=== PATIENT | female | born 1930 | race Caucasian/White ===

== ENCOUNTER 2019-08-06 10:59 | Inpatient (IN) | payer MEDICARE, BC ==
[~2019-08-06] VITALS: Ht 170.2 cm; Wt 68.6 kg
--- NOTE | 2019-08-06 11:10 | PHYS DOC ---
Past History Past Medical History: Anxiety, Dementia, Depression, Hypertension, Hypothyroid, Other Additional Past Medical Histor: heart of hearing, glaucoma, osteoporosis Smoking: Non-smoker Alcohol Use: None Drug Use: None Adult General Chief Complaint Chief Complaint: MEDICAL CLEARANCE [facility] HPI Patient is an 89-year-old female presents from the assisted care facility where she resides due to change in behavior. Patient has been hitting herself in the head to the point it's reddened. She has been yelling out, throwing things, agitated. She has been hitting her head on the handrail next to the commode. The facility where she is residing has tried redirection, and BuSpar. History is prabhakar ited from the patient due to her dementia.[] Review of Systems Review of Systems Constitutional: Denies fever or chills [] Eyes: Denies change in visual acuity, redness, or eye pain [] HENT: Denies nasal congestion or sore throat [] Respiratory: Denies cough or shortness of breath [] Cardiovascular: No additional information not addressed in HPI [] GI: Denies abdominal pain, nausea, vomiting, bloody stools or diarrhea [] : Denies dysuria or hematuria [] Musculoskeletal: Denies back pain or joint pain [] Integument: Denies rash or skin lesions [] Neurologic: Denies headache, focal weakness or sensory changes [] Endocrine: Denies polyuria or polydipsia [] All other systems were reviewed and found to be within normal limits, except as documented in this note. Physical Exam Physical Exam Constitutional: Well developed, well nourished, no acute distress, non-toxic appearance. [] HENT: Normocephalic, atraumatic, bilateral external ears normal, oropharynx moist, no oral exudates, nose normal. [] Eyes: PERRLA, EOMI, conjunctiva normal, no discharge. [] Neck: Normal range of motion, no tenderness, supple, no stridor. [] Cardiovascular:Heart rate regular rhythm, no murmur [] Lungs & Thorax: Bilateral breath sounds clear to auscultation [] Abdomen: Bowel sounds normal, soft, no tenderness, no masses, no pulsatile masses. [] Skin: Warm, dry, no erythema, no rash. [] Back: No tenderness, no CVA tenderness. [] Extremities: Left hip tenderness when nursing staff was taking down her pants in preparation to getting a urine sample. Pelvis is stable and 3 planes. She is able to move her hip. The other 3 extremities show: No tenderness, no cyanosis, no clubbing, ROM intact, no edema. [] Neurologic: Alert and oriented X 2, normal motor function, normal sensory function, no focal deficits noted. [] Psychologic: Affect agitated, mood normal. [] EKG EKG EKG shows a sinus rhythm at 83 bpm, normal axis, QTC of 438 ms, no ST elevation. No old EKG available for comparison. Interpreted by me at 1140.[] Radiology/Procedures Radiology/Procedures PROCEDURE: PORTABLE CHEST 1V PORTABLE CHEST 1V History: Change in mental status. Comparison: None. Findings: Basilar interstitial prominence. No focal consolidation or pleural effusion. Normal heart size. No pneumothorax. Impression: 1. Basilar interstitial prominence, likely related to chronic interstitial changes. Comparison with prior imaging studies would be of benefit. PROCEDURE: CT HEAD AND CERVICAL SPINE WO CT HEAD AND CERVICAL SPINE WO History: Bruising left forehead. Change in behavior. Comparison: None. Technique: Noncontrast CT imaging was performed of the head and cervical spine. Coronal and sagittal reconstructions were performed. Exposure: One or more of the following individualized dose reduction techniques were utilized for this examination: 1. Automated exposure control 2. Adjustment of the mA and/or kV according to patient size 3. Use of iterative reconstruction technique. Findings: Head CT: No intracranial hemorrhage. No mass effect. Moderate brain parenchymal volume loss. Moderate foci of decreased attenuation within the hemispheric white matter, most often due to chronic microvascular ischemia. Mildly prominent lateral ventricles, likely related to central brain parenchymal volume loss. Imaged orbits are unremarkable. Imaged paranasal sinuses and mastoid air cells are clear. No acute calvarial fracture. Left TMJ arthropathy. Cervical spine CT: Motion degraded examination. Repeat attempt at imaging was made with subsequent motion degradation. Grade 1 anterolisthesis C3 on C4 and C4 on C5. Minimal retrolisthesis C5 on C6. Grade 1 anterolisthesis C6 on C7, C7 on T1 in T1 on T2. Normal vertebral body height. No fracture. Moderate multilevel degenerative disc disease most prominent C5-C6. Multilevel advanced facet arthropathy most prominent left C2-C3, C3-C4 and C4-C5. No high-grade canal or neuroforaminal narrowing. C1-C2 degenerative changes with posterior pannus formation contributing to narrowing of the cervical medullary junction. Biapical pleural scarring. Multifocal carious dentition and periodontal disease most prominent within the left mandibular molars. Impression: Head CT: 1. No acute intracranial abnormality. 2. Moderate brain parenchymal volume loss and sequela chronic microvascular ischemia. CT cervical spine: Motion degraded examination. 1. No acute fracture or subluxation of the cervical spine 2. Multilevel cervical spondylosis with multilevel anterolisthesis. 3. Multifocal carious dentition and periodontal disease. PROCEDURE: PELVIS EXAM: Pelvis, single view. HISTORY: Pain. COMPARISON: None. FINDINGS: A frontal view of the pelvis is obtained. There is severe hip joint space narrowing with degenerative subchondral sclerosis, subchondral cyst formation, marginal osteophytosis and slight bony remodeling. There is advanced degenerative change at the lumbosacral junction. There is suspected bone demineralization. No displaced fracture is seen. IMPRESSION: 1. Severe bilateral hip osteoarthritis. 2. Degenerative change at the lumbosacral junction. [] Course & Med Decision Making Course & Med Decision Making Pertinent Labs and Imaging studies reviewed. (See chart for details) Urgency department course and medical decision making: Patient arrived, was placed in bed, and tolerated exam well. A straight catheter was placed to obtain urine. After return lab and imaging results, patient was given initial dose of antibiotics for the urinary tract infection. There is no evidence of systemic toxicity nor intracranial mass or bleed, nor significant electrolyte abnormality. Believe the patient is appropriate for senior behavioral health.[] Dragon Disclaimer Dragon Disclaimer This electronic medical record was generated, in whole or in part, using a voice recognition dictation system. Departure Departure: Impression: Primary Impression: Medical clearance for psychiatric admission Additional Impression: Urinary tract infection Disposition: 09 ADMITTED INPATIENT Admitting Physician: Other Condition: IMPROVED Problem Qualifiers Additional Impression: Urinary tract infection Urinary tract infection type: site unspecified Hematuria presence: with hematuria Qualified Codes: N39.0 - Urinary tract infection, site not specified; R31.9 - Hematuria, unspecified VALENCIA ARELLANO DO Aug 06, 2019 11:10
[2019-08-06 11:18] LABS: BASO # 0.1 x10^3/uL (0.0-0.2); BASO % 1 % (0-3); EOS # 0.1 x10^3/uL (0.0-0.7); EOS % 1 % (0-3); HEMATOCRIT 36.9 % (36.0-47.0); HEMOGLOBIN 12.4 g/dL (12.0-15.5); LYMPH # 1.4 x10^3/uL (1.0-4.8); LYMPH % 16 % (24-48); MEAN CORPUSCULAR HEMOGLOBIN 35 pg (25-35); MEAN CORPUSCULAR HGB CONC 34 g/dL (31-37); MEAN CORPUSCULAR VOLUME 103 fL (79-100); MONO % 11 % (0-9); NEUT # 6.5 x10^3uL (1.8-7.7); NEUT % 72 % (31-73); PLATELET COUNT 270 x10^3/uL (140-400); RED BLOOD COUNT 3.58 x10^6/uL (3.50-5.40); RED CELL DISTRIBUTION WIDTH 13.6 % (11.5-14.5)
--- NOTE | 2019-08-06 11:41 | EKG ---
[address] [address] Test Date: 2019-08-06 Test Time: 11:36:02 Pat Name: SHERLEY SIMON Department: Room: Gender: F Housekeeping Room Attendant: ENRICO : 1930 Requested By: VALENCIA ARELLANO Order Number: [id number] Reading MD: Carlos James MD Measurements Intervals [place] Rate: 83 P: 90 AR: 160 QRS: 32 QRSD: 94 T: 76 QT: 372 QTc: 438 Interpretive Statements SINUS RHYTHM NON-SPECIFIC ST/T CHANGES Electronically Signed On 08-17-2019 9:35:18 CDT by Carlos James MD
--- NOTE | 2019-08-06 12:01 | RAD ---
EXAM: Pelvis, single view. HISTORY: Pain. COMPARISON: None. FINDINGS: A frontal view of the pelvis is obtained. There is severe hip joint space narrowing with degenerative subchondral sclerosis, subchondral cyst formation, marginal osteophytosis and slight bony remodeling. There is advanced degenerative change at the lumbosacral junction. There is suspected bone demineralization. No displaced fracture is seen. IMPRESSION: 1. Severe bilateral hip osteoarthritis. 2. Degenerative change at the lumbosacral junction. Electronically signed by: Yolanda Manuel MD (08/06/2019 11:58 AM) [facility]
--- NOTE | 2019-08-06 12:37 | RAD ---
CT HEAD AND CERVICAL SPINE WO History: Bruising left forehead. Change in behavior. Comparison: None. Technique: Noncontrast CT imaging was performed of the head and cervical spine. Coronal and sagittal reconstructions were performed. Exposure: One or more of the following individualized dose reduction techniques were utilized for this examination: 1. Automated exposure control 2. Adjustment of the mA and/or kV according to patient size 3. Use of iterative reconstruction technique. Findings: Head CT: No intracranial hemorrhage. No mass effect. Moderate brain parenchymal volume loss. Moderate foci of decreased attenuation within the hemispheric white matter, most often due to chronic microvascular ischemia. Mildly prominent lateral ventricles, likely related to central brain parenchymal volume loss. Imaged orbits are unremarkable. Imaged paranasal sinuses and mastoid air cells are clear. No acute calvarial fracture. Left TMJ arthropathy. Cervical spine CT: Motion degraded examination. Repeat attempt at imaging was made with subsequent motion degradation. Grade 1 anterolisthesis C3 on C4 and C4 on C5. Minimal retrolisthesis C5 on C6. Grade 1 anterolisthesis C6 on C7, C7 on T1 in T1 on T2. Normal vertebral body height. No fracture. Moderate multilevel degenerative disc disease most prominent C5-C6. Multilevel advanced facet arthropathy most prominent left C2-C3, C3-C4 and C4-C5. No high-grade canal or neuroforaminal narrowing. C1-C2 degenerative changes with posterior pannus formation contributing to narrowing of the cervical medullary junction. Biapical pleural scarring. Multifocal carious dentition and periodontal disease most prominent within the left mandibular molars. Impression: Head CT: 1. No acute intracranial abnormality. 2. Moderate brain parenchymal volume loss and sequela chronic microvascular ischemia. CT cervical spine: Motion degraded examination. 1. No acute fracture or subluxation of the cervical spine 2. Multilevel cervical spondylosis with multilevel anterolisthesis. 3. Multifocal carious dentition and periodontal disease. Electronically signed by: Phillip Short DO (08/06/2019 12:34 PM) [id number]
--- NOTE | 2019-08-06 12:40 | RAD ---
PORTABLE CHEST 1V History: Change in mental status. Comparison: None. Findings: Basilar interstitial prominence. No focal consolidation or pleural effusion. Normal heart size. No pneumothorax. Impression: 1. Basilar interstitial prominence, likely related to chronic interstitial changes. Comparison with prior imaging studies would be of benefit. Electronically signed by: Phillip Short DO (08/06/2019 12:37 PM) [id number]
[2019-08-06 12:44] LABS: BACTERIA,URINE MANY /HPF (0-FEW); BILIRUBIN,URINE NEG (NEG); CLARITY,URINE TURBID; COLOR,URINE AMBER; GLUCOSE,URINE NEG (NEG); NITRITE,URINE NEG (NEG); SQUAMOUS EPITHELIAL CELL,UR OCC /LPF; UROBILINOGEN,URINE 0.2 mg/dL (0.2 mg/dL); WBC,URINE >40 /HPF (0-4)
[2019-08-06] MEDS ORDERED: CEPHALEXIN 250 MG CAPSULE ONE (13:08)
[2019-08-06] MEDS ORDERED: CEPHALEXIN 250 MG CAPSULE PO ONE (13:15)
[2019-08-06 13:47] LABS: ALBUMIN 4.1 g/dL (3.4-5.0); CALCIUM 9.6 mg/dL (8.5-10.1); TOTAL PROTEIN 8.4 g/dL (6.4-8.2)
[2019-08-06 13:48] LABS: CREATININE 0.9 mg/dL (0.6-1.0); GFR 59.1; TOTAL BILIRUBIN 0.8 mg/dL (0.2-1.0)
[2019-08-06 13:49] LABS: POTASSIUM 3.7 mmol/L (3.5-5.1)
[2019-08-06 13:50] LABS: MAGNESIUM 2.2 mg/dL (1.8-2.4)
[2019-08-06] MEDS ORDERED: FLU VAX QS 2019-20 (36MOS+)/PF 0.5 ML SYRINGE. VAX IM ONE (14:30)
[2019-08-06] MEDS ORDERED: LATA2.5D3 OP (14:53)
[2019-08-06] MEDS ORDERED: LEVO88TA4 PO (14:53)
[2019-08-06] MEDS ORDERED: POTA10TA5 PO (14:53)
[2019-08-06 15:31] VITALS: BP 138/65
[2019-08-06] MEDS ORDERED: MAGNESIUM HYDROXIDE 2,400 MG/30 ML ORAL.SUSP. PO PRN (16:30)
[2019-08-06] MEDS ORDERED: MAG HYDROX/AL HYDROX/SIMETH 30 ML ORAL.SUSP PO PRN (16:30)
[2019-08-06] MEDS: LATANOPROST 0.005% OPHTH SOLUTION 2.5ML BOTTLE. OU SCH ×2 (20:33→20:47)
--- NOTE | 2019-08-06 21:31 | PDOC ---
Exam Note: Julio César Note: Please also refer to the separate dictated note~for this date of service dictated separately. Discussed the patient with Nursing staff reviewed the chart.~Reviewed interim history and current functioning. Reviewed vital signs,~Labs/ Radiology~and current medications noted below. Continue current treatment with the changes noted in the dictated addendum note Assessment: Vital Signs/I&O: Vital Signs Date Time Temp Pulse Resp B/P (MAP) Pulse Ox O2 Delivery O2 Flow Rate FiO2 08/06/19 15:31 98.8 82 16 138/65 (89) 100 Room Air Labs: Laboratory Tests Test 08/06/19 11:00 08/06/19 11:15 White Blood Count 9.0 x10^3/uL (4.0-11.0) Red Blood Count 3.58 x10^6/uL (3.50-5.40) Hemoglobin 12.4 g/dL (12.0-15.5) Hematocrit 36.9 % (36.0-47.0) Mean Corpuscular Volume 103 fL (79-100) H Mean Corpuscular Hemoglobin 35 pg (25-35) Mean Corpuscular Hemoglobin Concent 34 g/dL (31-37) Red Cell Distribution Width 13.6 % (11.5-14.5) Platelet Count 270 x10^3/uL (140-400) Neutrophils (%) (Auto) 72 % (31-73) Lymphocytes (%) (Auto) 16 % (24-48) L Monocytes (%) (Auto) 11 % (0-9) H Eosinophils (%) (Auto) 1 % (0-3) Basophils (%) (Auto) 1 % (0-3) Neutrophils # (Auto) 6.5 x10^3uL (1.8-7.7) Lymphocytes # (Auto) 1.4 x10^3/uL (1.0-4.8) Monocytes # (Auto) 1.0 x10^3/uL (0.0-1.1) Eosinophils # (Auto) 0.1 x10^3/uL (0.0-0.7) Basophils # (Auto) 0.1 x10^3/uL (0.0-0.2) Sodium Level 135 mmol/L (136-145) L Potassium Level 3.7 mmol/L (3.5-5.1) Chloride Level 101 mmol/L (98-107) Carbon Dioxide Level 21 mmol/L (21-32) Anion Gap 14 (6-14) Blood Urea Nitrogen 13 mg/dL (7-20) Creatinine 0.9 mg/dL (0.6-1.0) Estimated GFR (Cockcroft-Gault) 59.1 BUN/Creatinine Ratio 14 (6-20) Glucose Level 76 mg/dL (70-99) Calcium Level 9.6 mg/dL (8.5-10.1) Magnesium Level 2.2 mg/dL (1.8-2.4) Total Bilirubin 0.8 mg/dL (0.2-1.0) Aspartate Amino Transferase (AST) 48 U/L (15-37) H Alanine Aminotransferase (ALT) 22 U/L (14-59) Alkaline Phosphatase 92 U/L (46-116) Total Protein 8.4 g/dL (6.4-8.2) H Albumin 4.1 g/dL (3.4-5.0) Albumin/Globulin Ratio 1.0 (1.0-1.7) Urine Collection Type U cath Urine Color [place] Urine Clarity Turbid Urine pH 6.5 Urine Specific [place] 1.025 Urine Protein 30 mg/dl (NEG-TRACE) Urine Glucose (UA) Neg mg/dL (NEG) Urine Ketones (Stick) Neg mg/dL (NEG) Urine Blood Mod (NEG) Urine Nitrite Neg (NEG) Urine Bilirubin Neg (NEG) Urine Urobilinogen Dipstick 0.2 mg/dL (0.2 mg/dL) Urine Leukocyte Esterase Large (NEG) Urine RBC 3-5 /HPF (0-2) Urine WBC >40 /HPF (0-4) Urine Squamous Epithelial Cells Occ /LPF Urine Bacteria Many /HPF (0-FEW) Current Medications: Meds: Current Medications Medications (Trade) Dose Ordered Sig/Camila Route PRN Reason Start Time Stop Time Status Last Admin Dose Admin Cephalexin HCl (Keflex) 500 mg 1X ONCE PO 08/06/19 13:15 08/06/19 13:16 DC 08/06/19 13:10 I have reviewed the current psychotropics carefully including drug interactions. Risk benefit ratio favors no change other than as noted in my dictated progress note. Diagnosis: Problems: (1) Anxiety disorder (2) Dementia, vascular, with delusions (3) Dementia, vascular, with depression (4) Dementia in Alzheimer's disease with delusions (5) Dementia in Alzheimer's disease with depression (6) Impulse control disorder ТАТЬЯНА HERNANDEZ MD Aug 06, 2019 21:31
[2019-08-07 02:09] LABS: THYROXINE 7.1 ug/dL (4.5-12.0)
[2019-08-07 03:07] LABS: HEMOGLOBIN A1C 5.2 % (4.8-5.6)
[2019-08-07 05:36] VITALS: BP 107/55
[2019-08-07] MEDS ORDERED: LEVOTHYROXINE 88 MCG TABLET PO SCH (06:00)
[2019-08-07] MEDS: ACETAMINOPHEN 325 MG TABLET PO PRN ×2 (06:30→16:15)
[2019-08-07] MEDS: POTASSIUM CHLORIDE 10 MEQ TABLET.ER. PO SCH (08:23)
[2019-08-07] MEDS ORDERED: FLU VAX QS 2019-20 (36MOS+)/PF 0.5 ML SYRINGE. VAX IM ONE (09:00)
[2019-08-07 10:47] LABS: THYROID STIM HORMONE (TSH) 35.048 uIU/mL (0.358-3.740)
[2019-08-07 15:32] VITALS: BP 138/75
--- NOTE | 2019-08-07 18:02 | HP ---
ADMIT DATE: 08/06/2019 PSYCHIATRIC ADMISSION HISTORY-EVALUATION This late entry 08/06/2019 covers elements not covered in my initial note of 08/06/2019. I met with the patient evening of 08/06/2019, previously discussed with Kylah Tripathi compliance coordinator and reviewed information from the [facility] after the patient was referred to us by Dr. Islas, her primary care physician, on account of increasing confusion, hitting herself in the head to the point it is reddened. She was yelling out, throwing things, sundowning, agitated, having inconsistent sleep, attempted to swing her head to hit it on the side bar of the commode. Patient's behaviors have been dangerous, unmanageable at the facility resulting in this referral. Changes have been made in her psychotropics and she has been on one-on-one status. BuSpar was added. Behavioral interventions with redirections had all failed and psychiatric visits with Dr. Judith Deras have been monthly. CHIEF COMPLAINT: "There is nothing wrong. I need to talk to my daughter. This is a senior living." HISTORY OF PRESENT ILLNESS: The patient reportedly was living in [place] and the daughter would visit her on a regular basis. Reportedly, at the last visit, the patient was generally found to be functioning very poorly in the environment she was living in ____ and the daughter brought her to this area to be closer to the daughter. She has been at the [facility] and consequent to the above behaviors, which have been dangerous, was recently moved to the memory care unit. No clear history of bipolar disorder, suicidal or homicidal ideation other than above. She does have progressive short-term memory deficits. She has also had significant pain issues and in the ER, her UA was positive reflexed to a culture and sensitivity awaited. CT head had shown cortical atrophy, periventricular white matter changes and ventricular dilatation consistent with her dementia diagnosis. PAST PSYCHIATRIC HISTORY: As noted above. ALLERGIES: Negative. CODE STATUS: DNR. MEDICAL HISTORY: UTI, hypertension, hypothyroidism, hard of hearing, glaucoma, osteoporosis. ACCU-CHEKS: None. DIET: Regular, low sodium. Ambulates with walker with assistance; wheelchair, 1 person transfer. CURRENT PSYCHOTROPICS: Potassium supplements and eye drops. FAMILY HISTORY: Noncontributory. SOCIAL HISTORY: No history of alcohol, drug abuse, physical, sexual or elder abuse. She is not known to be a perpetrator. REACTION TO HOSPITALIZATION: The patient oblivious to this. Initially, she was extremely nonverbal, wanting to be left alone, more interactive at my second assessment with her. MENTAL STATUS EXAMINATION: The patient is oriented to herself and situation. Speech is coherent, can be loud and rapid at times. Abstraction fair, computation impaired, language function intact, attention span short. Short term memory is impaired. No active suicidal or homicidal ideation. She does complain of her ____ head hurting consequent to banging her head on one side and she has a bump consequent to this. Workup has been negative for any fractures. IMPRESSION: Major neurocognitive disorder; Alzheimer, vascular with delusion; depression; behavioral disturbance; major depressive disorder, recurrent with psychotic features; anxiety disorder, unspecified; impulse control disorder, unspecified. Rest as above including urinary tract infection. PLAN: Admit to Geropsychiatry Unit at [facility]. I will see the patient daily individually from a psychiatric standpoint. Medical followup per Dr. Ferro. We will consider starting her on Zoloft 25 mg a day. Treat the UTI once we receive the culture back. Make further changes as clinically indicated. Estimated length of stay 10-12 days. DISPOSITION: Plans back to [facility] when stable. MAN Chris HERNANDEZ MD DR: HAIDER/ana maria JOB#: [id number] / [id number]
--- NOTE | 2019-08-07 19:28 | PN ---
DATE: 08/07/2019 PSYCHIATRIC PROGRESS NOTE This note covers elements not covered in my initial note on 08/07/2019 SUBJECTIVE: I met with the patient in the morning. Per HAWA Gallardo, the patient slept 6-1/2 hours previous night. She has been screaming intermittently and when questioned on the reason, she denies screaming whatsoever and states "was I screaming." She has had some pain consequent of hitting her head repeatedly at the half-way and complains of hip hurting. We will defer to Dr. Boyd/Dr. Ferro. She does have a UTI and I will defer to Dr. Boyd for this. REVIEW OF SYSTEMS: Ambulation impaired. No CV, , pulmonary, eye system symptoms on review. MENTAL STATUS EXAM: Oriented to herself, at times situation. Speech has some latency, coherent, can be rapid, loud at times. Abstraction fair, computation impaired, language function intact, attention span short. Mood and affect remains labile. Memory is impaired. LABORATORY DATA: Reviewed. IMPRESSION: Major neurocognitive disorder, Alzheimer, vascular with delusion, depression, behavioral disturbance; anxiety disorder, unspecified; impulse control disorder, unspecified; major depressive disorder, recurrent urinary tract infection. PLAN: Carefully reviewed her medical history, lab workup. CT head mentioned in my prior note. We will start Zoloft [address] Cortes will cover for me over the next 2 days. Reviewed drug interaction potential side effects at length. MAN Chris HERNANDEZ MD DR: HAIDER/ana maria JOB#: [id number] / [id number]
[2019-08-07] MEDS: traMADol 50 MG TABLET PO SCH (19:50)
[2019-08-07] MEDS: LATANOPROST 0.005% OPHTH SOLUTION 2.5ML BOTTLE. OU SCH (19:51)
--- NOTE | 2019-08-07 21:47 | PDOC ---
Exam Note: Julio César Note: Please also refer to the separate dictated note~for this date of service dictated separately.~Patient seen individually. Discussed the patient with Nursing staff reviewed the chart.~Reviewed interim history and current functioning. Reviewed vital signs,~Labs/ Radiology~and current medications noted below. Continue current treatment with the changes noted in the dictated addendum note Assessment: Vital Signs/I&O: Vital Signs Date Time Temp Pulse Resp B/P (MAP) Pulse Ox O2 Delivery O2 Flow Rate FiO2 08/07/19 20:50 100 08/07/19 19:50 16 Room Air 08/07/19 15:32 97.8 86 138/75 (96) I & O 08/06/19 08/06/19 08/07/19 15:00 23:00 07:00 Intake Total 0 ml Balance 0 ml Current Medications: Meds: Current Medications Medications (Trade) Dose Ordered Sig/Camila Route PRN Reason Start Time Stop Time Status Last Admin Dose Admin Levothyroxine Sodium (Synthroid) 88 mcg DAILY06 PO 08/07/19 06:00 08/07/19 11:29 DC 08/07/19 05:34 Potassium Chloride (Klor-Con) 20 meq [id number] PO 08/07/19 08:00 08/07/19 08:23 Influenza Virus Vaccine Quadrival (Afluria Quad 2019-20 (3yr Up) Syringe) 0.5 ml ONCE ONCE VAX IM 08/07/19 09:00 08/07/19 09:01 DC 08/07/19 09:00 Tramadol HCl (Ultram) 50 mg BID PO 08/07/19 21:00 08/07/19 19:50 I have reviewed the current psychotropics carefully including drug interactions. Risk benefit ratio favors no change other than as noted in my dictated progress note. Diagnosis: Problems: (1) Anxiety disorder (2) Dementia, vascular, with delusions (3) Dementia, vascular, with depression (4) Dementia in Alzheimer's disease with delusions (5) Dementia in Alzheimer's disease with depression (6) Impulse control disorder ТАТЬЯНА HERNANDEZ MD Aug 07, 2019 21:47
[2019-08-07] MEDS ORDERED: CEPHALEXIN 250 MG CAPSULE PO ONE (23:45)
--- NOTE | 2019-08-08 00:46 | CONS ---
DATE OF CONSULTATION: 08/06/2019 The patient is on the Senior Behavioral Unit. HISTORY OF PRESENT ILLNESS: This is an 89-year-old female. The patient was admitted for the major neurocognitive disorders as well as a vascular Alzheimer's disease. The patient does have problems with markedly confused and disorganized, looking for her daughter as well as hitting her head into the wall. There is some swelling. A CT scan had been performed and there was no indication of having any problems. The patient otherwise has histories of possible urinary tract infections, hypertension, hypothyroidism, hard of hearing, and glaucoma. The patient is a DNR. ALLERGIES: She has no known allergies. MEDICATIONS: Reviewed and consolidated along with Dr. Sanchez. FAMILY HISTORY: Unremarkable. SOCIAL HISTORY: Denies smoking, alcohol or drug use or elderly abuse and she is not a perpetrator. REVIEW OF SYSTEMS: The patient is really not able to concentrate enough to give us a full statement on her condition. PHYSICAL EXAMINATION: VITAL SIGNS: Blood pressure 135/75, pulse 86, respiratory rate 20, and afebrile. HEENT: The patient's head is atraumatic and normocephalic except for this area of left upper forehead, which showed marked swelling and tenderness ____ maybe 4.5 x 4 cm in diameter where she had been hitting her head on the wall. The patient's head ____ as described above. ____ otherwise, eyes were PERRLA without jaundice. NECK: Supple. LUNGS: Some minimal decreased range of motion because of arthritis. LUNGS: Diminished, but clear. CARDIOVASCULAR SYSTEM: Regular sinus rhythm. ABDOMEN: Soft. EXTREMITIES: No clubbing or cyanosis. No edema. NEUROLOGIC: The patient was alert, but disoriented times at least 3. She did respond to verbal commands; however, she was markedly confused and had a very short term concentration level. IMPRESSION: Therefore, dementia, Alzheimer type; hypertension; hypothyroidism; generalized anxiety; hard of hearing; glaucoma; self-mutilation; osteoporosis; major depressive disorder, recurrent; urinary tract infections; vascular Alzheimer's with delusions, looking for a daughter; and neurocognitive dysfunction. The patient continues to be monitored carefully and ____ urinary tract infection and we will continue on antibiotic therapy for such. ABDI NUNEZ MD DR: KRISTIAN/ana maria JOB#: [id number] / [id number]
[2019-08-08] MEDS: LEVOTHYROXINE 125 MCG TABLET PO SCH (06:03)
[2019-08-08] MEDS: ACETAMINOPHEN 325 MG TABLET PO PRN (06:03)
[2019-08-08 06:31] VITALS: BP 117/60
[2019-08-08] MEDS: POTASSIUM CHLORIDE 10 MEQ TABLET.ER. PO SCH (07:27)
[2019-08-08] MEDS: traMADol 50 MG TABLET PO SCH ×2 (07:28→19:30)
[2019-08-08] MEDS: SERTRALINE 25 MG TABLET. PO SCH (07:33)
[2019-08-08 16:10] VITALS: BP 120/76
[2019-08-08] MEDS: LATANOPROST 0.005% OPHTH SOLUTION 2.5ML BOTTLE. OU SCH (19:32)
--- NOTE | 2019-08-09 02:18 | PN ---
DATE: 08/08/2019 SUBJECTIVE: The patient was seen today, met with the staff, chart reviewed and also covering for Dr. Sanchez. Staff reports that patient is still irritable, howard, angry, explosive temper at times. The patient is also having difficulty with comprehension. The patient also has significant hearing loss. The patient apparently was moved here by her daughter from [place] and the patient is having difficulty giving a coherent history with regard to her past. The patient is emotionally labile, angry and also she was brought here because she was banging her head against the bed rails, which led to a hematoma on her forehead. The patient also apparently was not taking her medications because her TSH was 35 and also she had UTI. OBSERVATION: VITAL SIGNS: Temperature 97.2, blood pressure 117/60, pulse 81, respirations 16, O2 sat 97%. Slept about 8 hours last night. The patient's appetite is fair. The patient's sleep has improved. MEDICATIONS: Reviewed. Currently, she is on Zoloft 25 mg daily, olanzapine 2.5 mg q. 2 hours p.r.n., potassium chloride 20 mEq daily. She is also on levothyroxine 125 mcg daily. The patient was treated for UTI with Keflex. Staff reports no falls. The patient is not having any side effects to the medications. The patient's lab reviewed and no significant change from the previous level. ASSESSMENT: 1. 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 2. Generalized anxiety disorder. PLAN: Continue with the current medications. The patient is currently not exhibiting any side effects. The patient has been staying in bed most of the time and the patient has significant hearing loss. BHARGAVI ROOT MD DR: GALLO/ana maria JOB#: [id number] / [id number]
[2019-08-09] MEDS: levoFLOXacin 250 MG TABLET PO SCH (05:13)
[2019-08-09] MEDS: LEVOTHYROXINE 125 MCG TABLET PO SCH (05:14)
[2019-08-09] MEDS: ACETAMINOPHEN 325 MG TABLET PO PRN ×2 (05:14→20:15)
[2019-08-09 05:26] VITALS: BP 105/63
[2019-08-09] MEDS: METHYL SALICYLATE/MENTHOL TOPICAL OINTMENT 57GM TUBE. TP PRN (06:35)
--- NOTE | 2019-08-09 07:16 | PN ---
DATE: 08/08/2019 SUBJECTIVE: An 89-year-old female who has been having some incontinence. UA came back and was noted to have a urinary tract infection. Presently, final cultures have not been returned yet. She was placed on Levaquin 250 once daily. The patient otherwise is baseline, very agitated. OBJECTIVE: VITAL SIGNS: Blood pressure 120/76, respirations 18, pulse 80, afebrile. LUNGS: Clear. ABDOMEN: Soft. IMPRESSION: Urinary tract infection, gram-negative rods. PLAN: Continue with oral antibiotics for at least a week or unless cultures come back specifying some other type of problem. ABDI NUNEZ MD DR: KRISTIAN/ana maria JOB#: [id number] / [id number]
[2019-08-09] MEDS: POTASSIUM CHLORIDE 10 MEQ TABLET.ER. PO SCH (07:48)
[2019-08-09] MEDS: SERTRALINE 25 MG TABLET. PO SCH (07:49)
[2019-08-09] MEDS: traMADol 50 MG TABLET PO SCH ×2 (07:49→20:16)
[2019-08-09 15:59] VITALS: BP 121/63
[2019-08-09] MEDS: LACTOBACILLUS RHAMNOSUS GG 1 CAPSULE. PO SCH (20:15)
[2019-08-09] MEDS: LATANOPROST 0.005% OPHTH SOLUTION 2.5ML BOTTLE. OU SCH (20:15)
[2019-08-10] MEDS: ACETAMINOPHEN 325 MG TABLET PO PRN (05:13)
[2019-08-10] MEDS: LEVOTHYROXINE 125 MCG TABLET PO SCH (05:14)
[2019-08-10] MEDS: levoFLOXacin 250 MG TABLET PO SCH (05:14)
--- NOTE | 2019-08-10 06:03 | PN ---
DATE: 08/09/2019 SUBJECTIVE: The patient was seen today, met with the staff, chart reviewed and also covering for Dr. Sanchez. Staff reports no major change in behavior. She is still confused, still irritable, howard and has significant hearing loss. The patient has difficulty with her thinking and comprehension and has high level of anxiety and also periods of agitation. The patient was not indulged in any self-destructive behaviors. OBSERVATION: VITAL SIGNS: Temperature 97.6, blood pressure 105/63, pulse 84, respirations 16, O2 sat 97%. Slept about 6 hours last night. The patient's appetite has improved. MEDICATIONS: The patient is currently on Zoloft 25 mg daily, olanzapine 2.5 mg q. 2 hours p.r.n., and levothyroxine for her hypothyroidism. The patient was recently treated for UTI with Keflex. The patient did not have any side effects. LABORATORY DATA: The patient's lab showed elevated cholesterol, LDL and TSH level of 35. ASSESSMENT: 1. 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 2. Generalized anxiety disorder. PLAN: To continue with the treatment. The patient is not exhibiting any side effects. BHAGRAVI ROOT MD DR: GALLO/ana maria JOB#: [id number] / [id number]
[2019-08-10 06:09] VITALS: BP 110/48
[2019-08-10] MEDS: SERTRALINE 25 MG TABLET. PO SCH (08:10)
[2019-08-10] MEDS: traMADol 50 MG TABLET PO SCH ×2 (08:12→20:01)
[2019-08-10] MEDS: POTASSIUM CHLORIDE 10 MEQ TABLET.ER. PO SCH (08:12)
[2019-08-10] MEDS: LACTOBACILLUS RHAMNOSUS GG 1 CAPSULE. PO SCH ×2 (08:13→20:01)
[2019-08-10] MEDS: MULTIVITAMIN with MINERAL TABLET. PO SCH (08:19)
[2019-08-10 16:16] VITALS: BP 115/61
[2019-08-10] MEDS: LATANOPROST 0.005% OPHTH SOLUTION 2.5ML BOTTLE. OU SCH (20:01)
[2019-08-10] MEDS: DONEPEZIL HCL 5 MG TABLET. PO SCH (20:01)
--- NOTE | 2019-08-10 21:43 | PDOC ---
Exam Note: Julio César Note: Please also refer to the separate dictated note~for this date of service dictated separately.~Patient seen individually. Discussed the patient with Nursing staff reviewed the chart.~Reviewed interim history and current functioning. Reviewed vital signs,~Labs/ Radiology~and current medications noted below. Continue current treatment with the changes noted in the dictated addendum note Assessment: Vital Signs/I&O: Vital Signs Date Time Temp Pulse Resp B/P (MAP) Pulse Ox O2 Delivery O2 Flow Rate FiO2 08/10/19 21:18 Room Air 08/10/19 16:16 97.0 65 16 115/61 (79) 98 I & O 08/09/19 08/09/19 08/10/19 15:00 23:00 07:00 Intake Total 480 ml 480 ml Balance 480 ml 480 ml Current Medications: Meds: Current Medications Medications (Trade) Dose Ordered Sig/Camila Route PRN Reason Start Time Stop Time Status Last Admin Dose Admin Multivitamins/ Calcium (Thera-M Plus) 1 tab DAILY PO 08/10/19 09:00 08/10/19 08:19 Donepezil HCl (Aricept) 5 mg QHS PO 08/10/19 21:00 08/10/19 20:01 I have reviewed the current psychotropics carefully including drug interactions. Risk benefit ratio favors no change other than as noted in my dictated progress note. Diagnosis: Problems: (1) Anxiety disorder (2) Dementia, vascular, with delusions (3) Dementia, vascular, with depression (4) Dementia in Alzheimer's disease with delusions (5) Dementia in Alzheimer's disease with depression (6) Impulse control disorder ТАТЬЯНА HERNANDEZ MD Aug 10, 2019 21:42
[2019-08-11] MEDS: ACETAMINOPHEN 325 MG TABLET PO PRN ×2 (04:38→22:19)
[2019-08-11 04:44] VITALS: BP 100/53
[2019-08-11] MEDS: LEVOTHYROXINE 125 MCG TABLET PO SCH (05:44)
[2019-08-11] MEDS: levoFLOXacin 250 MG TABLET PO SCH (05:44)
[2019-08-11] MEDS: POTASSIUM CHLORIDE 10 MEQ TABLET.ER. PO SCH (07:59)
[2019-08-11] MEDS: LACTOBACILLUS RHAMNOSUS GG 1 CAPSULE. PO SCH ×2 (07:59→19:52)
[2019-08-11] MEDS: MULTIVITAMIN with MINERAL TABLET. PO SCH (07:59)
[2019-08-11] MEDS: traMADol 50 MG TABLET PO SCH ×2 (08:00→19:54)
[2019-08-11] MEDS: SERTRALINE 25 MG TABLET. PO SCH (08:00)
[2019-08-11 16:11] VITALS: BP 117/71
[2019-08-11] MEDS: DONEPEZIL HCL 5 MG TABLET. PO SCH (19:52)
[2019-08-11] MEDS: LATANOPROST 0.005% OPHTH SOLUTION 2.5ML BOTTLE. OU SCH (19:54)
--- NOTE | 2019-08-11 21:47 | PDOC ---
Exam Note: Julio César Note: Please also refer to the separate dictated note~for this date of service dictated separately.~Patient seen individually. Discussed the patient with Nursing staff reviewed the chart.~Reviewed interim history and current functioning. Reviewed vital signs,~Labs/ Radiology~and current medications noted below. Continue current treatment with the changes noted in the dictated addendum note Assessment: Vital Signs/I&O: Vital Signs Date Time Temp Pulse Resp B/P (MAP) Pulse Ox O2 Delivery O2 Flow Rate FiO2 08/11/19 21:35 99 08/11/19 16:11 97.3 74 18 117/71 (86) 08/11/19 10:41 Room Air I & O 08/10/19 08/10/19 08/11/19 15:00 23:00 07:00 Intake Total 480 ml 600 ml Balance 480 ml 600 ml Current Medications: I have reviewed the current psychotropics carefully including drug interactions. Risk benefit ratio favors no change other than as noted in my dictated progress note. Diagnosis: Problems: (1) Anxiety disorder (2) Dementia, vascular, with delusions (3) Dementia, vascular, with depression (4) Dementia in Alzheimer's disease with delusions (5) Dementia in Alzheimer's disease with depression (6) Impulse control disorder ТАТЬЯНА HERNANDEZ MD Aug 11, 2019 21:47
--- NOTE | 2019-08-12 01:52 | PN ---
DATE: 08/10/2019 PSYCHIATRIC PROGRESS NOTE This late entry 08/10/2019 covers elements not covered in my initial note. SUBJECTIVE: I met with the patient evening of 08/10/2019. Discussed with nursing staff, reviewed the chart. The patient slept 7 hours previous night. She remains confused, somewhat agitated previous evening, but during the day on 08/10/2019, she was fairly quiet, spent time in the day room, attended some groups after lunch. She is extremely hard of hearing, impaired ambulation, intermittently in wheelchair, and we will make sure she start some physical therapy, but no CV, , pulmonary, eye system symptoms on review. MENTAL STATUS EXAM: Oriented to herself. Insight, judgment, recent and remote memory, attention, concentration, fund of knowledge poor, consistent with her diagnosis. Short term memory is impaired. She is quite irritable as I met with her at length, but no clear hallucinations noted. I also returned a telephone call from the patient's daughter and had approximately 25-minute telephone call with her daughter. Daughter gave a fairly extensive past history and progressive deterioration in cognition, self-care abilities, and the daughter's ultimate decision to bring her to be closer to where the daughter lives and then the placement at [facility] and then the referral to us. I discussed the medication changes we made. We have also gone ahead and started Zoloft. She did have a UTI for which she is on Levaquin. Attention span short. Language function intact. No active suicidal or homicidal ideation. Short-term memory is impaired. Irritable at times. TSH was elevated. Synthroid has been increased since the TSH was 35.048. LABORATORY DATA: Reviewed. IMPRESSION: Major neurocognitive disorder, Alzheimer, vascular with delusion, depression, behavioral disturbance; anxiety disorder, unspecified; impulse control disorder, unspecified; urinary tract infection; hypothyroidism. Rest unchanged. PLAN: Continue Zoloft 25 mg a day, may need to increase this. We will also start Aricept 5 mg a day. It is hard to know how much benefit this should have, but given her Alzheimer's diagnosis, it probably is prudent to do this. Discussed all this with the daughter. ТАТЬЯНА HERNANDEZ MD DR: HAIDER/ana maria JOB#: [id number] / [id number]
[2019-08-12] MEDS: levoFLOXacin 250 MG TABLET PO SCH (04:08)
[2019-08-12] MEDS: LEVOTHYROXINE 125 MCG TABLET PO SCH (04:08)
[2019-08-12 06:15] VITALS: BP 131/58
[2019-08-12 07:48] LABS: BASO % 1 % (0-3); EOS # 0.1 x10^3/uL (0.0-0.7); EOS % 2 % (0-3); HEMATOCRIT 33.2 % (36.0-47.0); LYMPH # 1.3 x10^3/uL (1.0-4.8); LYMPH % 24 % (24-48); MEAN CORPUSCULAR HEMOGLOBIN 34 pg (25-35); MEAN CORPUSCULAR HGB CONC 33 g/dL (31-37); MEAN CORPUSCULAR VOLUME 102 fL (79-100); MONO # 0.5 x10^3/uL (0.0-1.1); MONO % 10 % (0-9); NEUT # 3.2 x10^3uL (1.8-7.7); NEUT % 62 % (31-73); PLATELET COUNT 340 x10^3/uL (140-400); RED BLOOD COUNT 3.24 x10^6/uL (3.50-5.40); RED CELL DISTRIBUTION WIDTH 13.8 % (11.5-14.5); WHITE BLOOD COUNT 5.2 x10^3/uL (4.0-11.0)
[2019-08-12] MEDS: POTASSIUM CHLORIDE 10 MEQ TABLET.ER. PO SCH (07:51)
[2019-08-12] MEDS: SERTRALINE 25 MG TABLET. PO SCH (07:51)
[2019-08-12] MEDS: LACTOBACILLUS RHAMNOSUS GG 1 CAPSULE. PO SCH ×2 (07:51→19:37)
[2019-08-12] MEDS: MULTIVITAMIN with MINERAL TABLET. PO SCH (07:51)
[2019-08-12] MEDS: traMADol 50 MG TABLET PO SCH ×2 (07:52→19:39)
[2019-08-12 07:58] LABS: ALBUMIN/GLOBULIN RATIO 0.7 (1.0-1.7); CALCIUM 9.5 mg/dL (8.5-10.1); CREATININE 0.8 mg/dL (0.6-1.0); GFR 67.7; TOTAL BILIRUBIN 0.2 mg/dL (0.2-1.0); TOTAL PROTEIN 7.3 g/dL (6.4-8.2)
[2019-08-12] MEDS ORDERED: BRIM5DRO3 EACHEYE (17:00)
[2019-08-12 17:25] VITALS: BP 135/82
[2019-08-12] MEDS: DONEPEZIL HCL 5 MG TABLET. PO SCH (19:37)
[2019-08-12] MEDS: BRIMONIDINE 0.2% OPHTH SOLUTION 5ML BOTTLE. OU SCH (19:39)
[2019-08-12] MEDS: LATANOPROST 0.005% OPHTH SOLUTION 2.5ML BOTTLE. OU SCH (19:39)
--- NOTE | 2019-08-12 21:49 | PDOC ---
Exam Note: Julio César Note: Please also refer to the separate dictated note~for this date of service dictated separately.~Patient seen individually. Discussed the patient with Nursing staff reviewed the chart.~Reviewed interim history and current functioning. Reviewed vital signs,~Labs/ Radiology~and current medications noted below. Continue current treatment with the changes noted in the dictated addendum note Assessment: Vital Signs/I&O: Vital Signs Date Time Temp Pulse Resp B/P (MAP) Pulse Ox O2 Delivery O2 Flow Rate FiO2 08/12/19 21:10 100 08/12/19 17:25 97.6 73 16 135/82 (99) Room Air I & O 08/11/19 08/11/19 08/12/19 15:00 23:00 07:00 Intake Total 720 ml 480 ml Balance 720 ml 480 ml Labs: Laboratory Tests Test 08/12/19 07:01 White Blood Count 5.2 x10^3/uL (4.0-11.0) Red Blood Count 3.24 x10^6/uL (3.50-5.40) L Hemoglobin 11.0 g/dL (12.0-15.5) L Hematocrit 33.2 % (36.0-47.0) L Mean Corpuscular Volume 102 fL (79-100) H Mean Corpuscular Hemoglobin 34 pg (25-35) Mean Corpuscular Hemoglobin Concent 33 g/dL (31-37) Red Cell Distribution Width 13.8 % (11.5-14.5) Platelet Count 340 x10^3/uL (140-400) Neutrophils (%) (Auto) 62 % (31-73) Lymphocytes (%) (Auto) 24 % (24-48) Monocytes (%) (Auto) 10 % (0-9) H Eosinophils (%) (Auto) 2 % (0-3) Basophils (%) (Auto) 1 % (0-3) Neutrophils # (Auto) 3.2 x10^3uL (1.8-7.7) Lymphocytes # (Auto) 1.3 x10^3/uL (1.0-4.8) Monocytes # (Auto) 0.5 x10^3/uL (0.0-1.1) Eosinophils # (Auto) 0.1 x10^3/uL (0.0-0.7) Basophils # (Auto) 0.0 x10^3/uL (0.0-0.2) Sodium Level 140 mmol/L (136-145) Potassium Level 4.0 mmol/L (3.5-5.1) Chloride Level 104 mmol/L (98-107) Carbon Dioxide Level 29 mmol/L (21-32) Anion Gap 7 (6-14) Blood Urea Nitrogen 22 mg/dL (7-20) H Creatinine 0.8 mg/dL (0.6-1.0) Estimated GFR (Cockcroft-Gault) 67.7 BUN/Creatinine Ratio 28 (6-20) H Glucose Level 95 mg/dL (70-99) Calcium Level 9.5 mg/dL (8.5-10.1) Total Bilirubin 0.2 mg/dL (0.2-1.0) Aspartate Amino Transferase (AST) 20 U/L (15-37) Alanine Aminotransferase (ALT) 19 U/L (14-59) Alkaline Phosphatase 83 U/L (46-116) Total Protein 7.3 g/dL (6.4-8.2) Albumin 3.0 g/dL (3.4-5.0) L Albumin/Globulin Ratio 0.7 (1.0-1.7) L Current Medications: I have reviewed the current psychotropics carefully including drug interactions. Risk benefit ratio favors no change other than as noted in my dictated progress note. Diagnosis: Problems: (1) Anxiety disorder (2) Dementia, vascular, with delusions (3) Dementia, vascular, with depression (4) Dementia in Alzheimer's disease with delusions (5) Dementia in Alzheimer's disease with depression (6) Impulse control disorder ТАТЬЯНА HERNANDEZ MD Aug 12, 2019 21:49
[2019-08-13] MEDS: BRIMONIDINE 0.2% OPHTH SOLUTION 5ML BOTTLE. OU SCH ×3 (00:07→19:27)
[2019-08-13] MEDS: levoFLOXacin 250 MG TABLET PO SCH (00:07)
[2019-08-13] MEDS: LEVOTHYROXINE 125 MCG TABLET PO SCH (00:07)
[2019-08-13 06:13] VITALS: BP 146/77
[2019-08-13] MEDS: SERTRALINE 25 MG TABLET. PO SCH (07:44)
[2019-08-13] MEDS: traMADol 50 MG TABLET PO SCH ×2 (07:44→19:27)
[2019-08-13] MEDS: MULTIVITAMIN with MINERAL TABLET. PO SCH (07:44)
[2019-08-13] MEDS: POTASSIUM CHLORIDE 10 MEQ TABLET.ER. PO SCH (07:44)
[2019-08-13] MEDS: LACTOBACILLUS RHAMNOSUS GG 1 CAPSULE. PO SCH ×2 (07:44→19:27)
--- NOTE | 2019-08-13 12:45 | PN ---
DATE: 08/11/2019 PSYCHIATRIC PROGRESS NOTE. This late entry of 08/11/2019 covers the elements not covered in my initial note. SUBJECTIVE: I met with the patient in the evening of 08/11/2019. The patient slept 4-1/4 hours previous night. She has had no disruptive behaviors previous night and during the day on 08/11/2019. She was trying to get herself in her room with the door closed according to HAWA Diaz. When questioned on the reason for this, she stated she saw the landlord in the corridor and did not want him to ask any questions of her. Somewhat confused with short-term memory deficits. REVIEW OF SYSTEMS: Ambulation impaired. No CV, , pulmonary, eye system symptoms on review. MENTAL STATUS EXAM: Oriented to herself and situation. Speech has some latency, coherent, rapid at times, hard of hearing. Abstraction fair, computation impaired, language function intact. Mood and affect remain somewhat anxious, labile. LABORATORY DATA: Reviewed. IMPRESSION: Unchanged from initial note. PLAN: No change from initial note. ТАТЬЯНА HERNANDEZ MD DR: HAIDER/ana maria JOB#: [id number] / [id number]
[2019-08-13 15:37] VITALS: BP 131/79
[2019-08-13] MEDS: DONEPEZIL HCL 5 MG TABLET. PO SCH (19:27)
[2019-08-13] MEDS: LATANOPROST 0.005% OPHTH SOLUTION 2.5ML BOTTLE. OU SCH (19:27)
--- NOTE | 2019-08-13 21:39 | PDOC ---
Exam Note: Julio César Note: Please also refer to the separate dictated note~for this date of service dictated separately.~Patient seen individually. Discussed the patient with Nursing staff reviewed the chart.~Reviewed interim history and current functioning. Reviewed vital signs,~Labs/ Radiology~and current medications noted below. Continue current treatment with the changes noted in the dictated addendum note Assessment: Vital Signs/I&O: Vital Signs Date Time Temp Pulse Resp B/P (MAP) Pulse Ox O2 Delivery O2 Flow Rate FiO2 08/13/19 20:27 98 08/13/19 15:37 97.6 83 16 131/79 (96) Room Air I & O 08/12/19 08/12/19 08/13/19 15:00 23:00 07:00 Intake Total 720 ml 360 ml Balance 720 ml 360 ml Current Medications: Meds: Current Medications Medications (Trade) Dose Ordered Sig/Camila Route PRN Reason Start Time Stop Time Status Last Admin Dose Admin Brimonidine Tartrate (Alphagan) 1 drop Q8HRS OU 08/12/19 22:00 08/13/19 19:27 I have reviewed the current psychotropics carefully including drug interactions. Risk benefit ratio favors no change other than as noted in my dictated progress note. Diagnosis: Problems: (1) Anxiety disorder (2) Dementia, vascular, with delusions (3) Dementia, vascular, with depression (4) Dementia in Alzheimer's disease with delusions (5) Dementia in Alzheimer's disease with depression (6) Impulse control disorder ТАТЬЯНА HERNANDEZ MD Aug 13, 2019 21:39
--- NOTE | 2019-08-13 23:22 | PN ---
DATE: 08/12/2019 PSYCHIATRIC PROGRESS NOTE This late entry, 08/12, covers elements not covered in my initial note. SUBJECTIVE: I met with the patient in the evening and patient was staffed at a treatment team meeting with the entire team in the morning. The patient's daughter was unable to attend as scheduled. The patient is sleeping about 6-1/2 hours. Appetite 50-75%. She is intermittently compliant with meds and assessment. Later in the morning, was yelling. She does have a UTI and is on Levaquin and TSH is quite elevated. Synthroid has been increased. We will defer to Dr. Ferro. REVIEW OF SYSTEMS: Ambulation impaired with walker. No CV, , pulmonary, eye system symptoms on review. Hard of hearing. Reliability poor. MENTAL STATUS EXAMINATION: Oriented to herself and situation. Speech is coherent, abstraction fair, computation impaired, language function intact, attention span short. Mood and affect remain somewhat anxious, labile. LABORATORY DATA: Reviewed. IMPRESSION: Unchanged from initial note including urinary tract infection; hypothyroidism; major neurocognitive disorder; Alzheimer, vascular with delusion; depression; behavioral disturbance; anxiety disorder, unspecified; impulse control disorder, unspecified. PLAN: Continue current psychotropics as mentioned in my initial note. Treat the UTI. Stabilize the thyroid status. May need to increase Zoloft further along with Aricept. MAN Chris HERNANDEZ MD DR: HAIDER/ana maria JOB#: [id number] / [id number]
[2019-08-14] MEDS: levoFLOXacin 250 MG TABLET PO SCH (05:15)
[2019-08-14] MEDS: LEVOTHYROXINE 125 MCG TABLET PO SCH (05:15)
[2019-08-14] MEDS: BRIMONIDINE 0.2% OPHTH SOLUTION 5ML BOTTLE. OU SCH ×3 (05:16→20:03)
[2019-08-14 06:20] VITALS: BP 143/86
[2019-08-14] MEDS: MULTIVITAMIN with MINERAL TABLET. PO SCH (07:11)
[2019-08-14] MEDS: LACTOBACILLUS RHAMNOSUS GG 1 CAPSULE. PO SCH ×2 (07:11→20:02)
[2019-08-14] MEDS: POTASSIUM CHLORIDE 10 MEQ TABLET.ER. PO SCH (07:12)
[2019-08-14] MEDS: traMADol 50 MG TABLET PO SCH ×2 (07:13→20:02)
[2019-08-14] MEDS: SERTRALINE 50 MG TABLET. PO SCH (08:52)
[2019-08-14 16:01] VITALS: BP 116/66
--- NOTE | 2019-08-14 18:53 | PN ---
DATE: 08/13/2019 PSYCHIATRIC PROGRESS NOTE This note covers elements not covered in my initial note of 08/13. SUBJECTIVE: The patient was seen individually on the evening of 08/13 in her room. The patient reportedly had made some vague suicidal statements the previous night, but none during the day today. REVIEW OF SYSTEMS: Ambulation impaired, in wheelchair. No CV, , pulmonary, eye, ENT system symptoms on review. MENTAL STATUS EXAMINATION: Oriented to herself. Insight, judgment, recent and remote memory, attention, concentration, fund of knowledge poor; consistent with her diagnosis mentioned in my initial note. PLAN: Increase Zoloft from 25 mg a day to 50 mg a day after she has been on 25 mg for 3 days. Increase Aricept from 5 mg a day to 10 mg a day after being on 5 mg for 5 days. Make further adjustments as clinically indicated. She had a sense of humor, was making jokes with me, giving me high fives as I met with her; more animated, confused. We did discuss her thyroid status, the fact that she was probably not taking her Synthroid at home, and she totally denied this. MAN Chris HERNANDEZ MD DR: HAIDER/ana maria JOB#: [id number] / [id number]
[2019-08-14] MEDS: DONEPEZIL HCL 5 MG TABLET. PO SCH (20:02)
[2019-08-14] MEDS: LATANOPROST 0.005% OPHTH SOLUTION 2.5ML BOTTLE. OU SCH (20:03)
--- NOTE | 2019-08-14 22:53 | PDOC ---
Exam Note: Julio César Note: Please also refer to the separate dictated note~for this date of service dictated separately.~Patient seen individually. Discussed the patient with Nursing staff reviewed the chart.~Reviewed interim history and current functioning. Reviewed vital signs,~Labs/ Radiology~and current medications noted below. Continue current treatment with the changes noted in the dictated addendum note Assessment: Vital Signs/I&O: Vital Signs Date Time Temp Pulse Resp B/P (MAP) Pulse Ox O2 Delivery O2 Flow Rate FiO2 08/14/19 21:11 98 08/14/19 16:01 97.2 87 19 116/66 (83) Room Air I & O 08/13/19 08/13/19 08/14/19 14:59 22:59 06:59 Intake Total 720 ml 240 ml Balance 720 ml 240 ml Current Medications: Meds: Current Medications Medications (Trade) Dose Ordered Sig/Camila Route PRN Reason Start Time Stop Time Status Last Admin Dose Admin Sertraline HCl (Zoloft) 50 mg DAILY PO 08/14/19 09:00 08/14/19 08:52 I have reviewed the current psychotropics carefully including drug interactions. Risk benefit ratio favors no change other than as noted in my dictated progress note. Diagnosis: Problems: (1) Medical clearance for psychiatric admission (2) Anxiety disorder (3) Dementia, vascular, with delusions (4) Dementia, vascular, with depression (5) Dementia in Alzheimer's disease with delusions (6) Dementia in Alzheimer's disease with depression (7) Impulse control disorder ТАТЬЯНА HERNANDEZ MD Aug 14, 2019 22:53
[2019-08-15 05:08] VITALS: BP 148/79
[2019-08-15] MEDS: BRIMONIDINE 0.2% OPHTH SOLUTION 5ML BOTTLE. OU SCH ×3 (05:48→19:42)
[2019-08-15] MEDS: levoFLOXacin 250 MG TABLET PO SCH (05:48)
[2019-08-15] MEDS: LEVOTHYROXINE 125 MCG TABLET PO SCH (05:48)
[2019-08-15] MEDS: traMADol 50 MG TABLET PO SCH ×2 (07:35→19:42)
[2019-08-15] MEDS: LACTOBACILLUS RHAMNOSUS GG 1 CAPSULE. PO SCH ×2 (07:35→19:41)
[2019-08-15] MEDS: MULTIVITAMIN with MINERAL TABLET. PO SCH (07:36)
[2019-08-15] MEDS: SERTRALINE 50 MG TABLET. PO SCH (07:36)
[2019-08-15] MEDS: POTASSIUM CHLORIDE 10 MEQ TABLET.ER. PO SCH (07:36)
[2019-08-15] MEDS: DONEPEZIL HCL 10 MG TABLET PO SCH (10:28)
[2019-08-15 16:09] VITALS: BP 114/70
[2019-08-15] MEDS: LATANOPROST 0.005% OPHTH SOLUTION 2.5ML BOTTLE. OU SCH (19:39)
--- NOTE | 2019-08-16 01:13 | PN ---
DATE: 08/15/2019 SUBJECTIVE: The patient was seen today, met with the staff, chart reviewed and also covering for Dr. Sanchez. Staff reports no change in her behavior. She is much calmer, still confused. The patient has not presented with any major behavior problems. The patient continues to exhibit significant memory problems. The patient also needing assistance with her ADLs. The patient is not able to identify her problems and feelings. OBSERVATION: VITAL SIGNS: Temperature 97.3, blood pressure 148/79, pulse 100, respirations 16, O2 sat 97%. GENERAL: Slept about 4 hours last night. CURRENT MEDICATIONS: Include Aricept 10 mg daily, Zoloft 50 mg daily, also olanzapine 2.5 mg q. 2 hours p.r.n. LABORATORY DATA: The patient's lab reviewed, no major change from the previous levels. The patient's BUN was 22. The patient currently not presenting with any psychotic symptoms. The patient continues to have some irritability and mood swings. IMPRESSION: 1. Major neurocognitive disorder, Alzheimer's, vascular with delusion, depression, and behavioral disturbances. 2. Anxiety disorder, unspecified. PLAN: The patient is planned for discharge when placement is available. The patient continues to exhibit fluctuating symptoms and she has been a management problem at times. BHARGAVI ROOT MD DR: GALLO/ana maria JOB#: [id number] / [id number]
[2019-08-16 05:17] VITALS: BP 105/60
--- NOTE | 2019-08-16 06:02 | PN ---
DATE: 08/14/2019 PSYCHIATRIC PROGRESS NOTE This late entry, 08/14/2019, covers elements not covered in my initial note, 08/14/2019. SUBJECTIVE: I met with the patient in morning of 08/14/2019. The patient slept 8-1/2 hours previous night. She remains confused, somewhat hard of hearing, and impaired ambulation in wheelchair. No CV, , pulmonary, or eye system symptoms on review. MENTAL STATUS EXAM: Oriented to herself. Insight, judgment, recent and remote memory, attention, concentration, and fund of knowledge are poor, consistent with her diagnosis. She was very verbal and animated, constantly giving me high fives, pleasant with significant short-term memory deficits. LABORATORY DATA: Reviewed. IMPRESSION: Unchanged from initial note. PLAN: No change from initial note. Dr. Cortes will cover for me for the next several days while I am on vacation. MAN Chris HERNANDEZ MD DR: HAIDER/ana maria JOB#: [id number] / [id number]
[2019-08-16] MEDS: LEVOTHYROXINE 125 MCG TABLET PO SCH (06:17)
[2019-08-16] MEDS: BRIMONIDINE 0.2% OPHTH SOLUTION 5ML BOTTLE. OU SCH ×3 (06:17→19:27)
[2019-08-16] MEDS: MULTIVITAMIN with MINERAL TABLET. PO SCH (08:15)
[2019-08-16] MEDS: LACTOBACILLUS RHAMNOSUS GG 1 CAPSULE. PO SCH ×2 (08:15→19:28)
[2019-08-16] MEDS: POTASSIUM CHLORIDE 10 MEQ TABLET.ER. PO SCH (08:15)
[2019-08-16] MEDS: DONEPEZIL HCL 10 MG TABLET PO SCH (08:15)
[2019-08-16] MEDS: SERTRALINE 50 MG TABLET. PO SCH (08:15)
[2019-08-16] MEDS: traMADol 50 MG TABLET PO SCH ×2 (08:16→19:28)
[2019-08-16 16:33] VITALS: BP 120/76
[2019-08-16] MEDS: LATANOPROST 0.005% OPHTH SOLUTION 2.5ML BOTTLE. OU SCH (19:27)
--- NOTE | 2019-08-17 00:23 | PN ---
DATE: 08/16/2019 SUBJECTIVE: The patient was seen today, met with the staff, chart reviewed. The patient's behavior remains the same, has periods of agitation. Apparently, she got upset with her roommate last night and she received Zyprexa Zydis as p.r.n. to calm her nerves. OBSERVATION: VITAL SIGNS: Temperature 97.7, blood pressure 105/60, pulse 91, respirations 16, O2 sat 95%. GENERAL: Slept about 6 hours last night. The patient's appetite improved. The patient will continue on her current medications including Aricept 10 mg daily, Zoloft 50 mg daily and olanzapine 2.5 mg q.2 hours p.r.n. The patient's lab reviewed. The patient is not presenting with any other major behavior problems. IMPRESSION: 1. Major neurocognitive disorder, Alzheimer's, vascular with delusion, depression, and behavioral disturbances. 2. Anxiety disorder, unspecified. PLAN: To continue with the treatment. Continue with her medication at this point. BHARGAVI ROOT MD DR: GALLO/ana maria JOB#: [id number] / [id number]
[2019-08-17 05:38] VITALS: BP 91/50
[2019-08-17] MEDS: BRIMONIDINE 0.2% OPHTH SOLUTION 5ML BOTTLE. OU SCH ×3 (05:47→19:37)
[2019-08-17] MEDS: LEVOTHYROXINE 125 MCG TABLET PO SCH (05:47)
[2019-08-17] MEDS: traMADol 50 MG TABLET PO SCH ×2 (08:45→19:37)
[2019-08-17] MEDS: MULTIVITAMIN with MINERAL TABLET. PO SCH (08:46)
[2019-08-17] MEDS: SERTRALINE 50 MG TABLET. PO SCH (08:46)
[2019-08-17] MEDS: POTASSIUM CHLORIDE 10 MEQ TABLET.ER. PO SCH (08:46)
[2019-08-17] MEDS: DONEPEZIL HCL 10 MG TABLET PO SCH (08:46)
[2019-08-17] MEDS: LACTOBACILLUS RHAMNOSUS GG 1 CAPSULE. PO SCH ×2 (08:46→19:37)
[2019-08-17 16:02] VITALS: BP 95/56
[2019-08-17] MEDS: LATANOPROST 0.005% OPHTH SOLUTION 2.5ML BOTTLE. OU SCH (19:37)
--- NOTE | 2019-08-18 02:52 | PN ---
DATE: 08/17/2019 SUBJECTIVE: The patient was seen today, met with the staff, chart reviewed. The patient's behavior remains the same. The patient on wheelchair and no major behavior problems exhibited today, according to the staff, but the patient continues to have periods of increased agitation and also having difficulty accepting her roommate. The patient is also very rigid with her thinking and demanding behaviors. OBJECTIVE: VITAL SIGNS: Temperature 98.3, blood pressure 91/50, pulse 87, respirations 18, O2 sat 95%. GENERAL: Slept about 8 hours last night. The patient's appetite has improved. LABORATORY DATA: The patient's lab reviewed, which are all within the normal range. MEDICATIONS: The patient's current medications include Aricept 10 mg daily, Zoloft 50 mg daily and olanzapine 2.5 mg q. 2 hours p.r.n. The patient is not exhibiting any side effects. IMPRESSION: 1. Major neurocognitive disorder, Alzheimer's, vascular with delusion, depression and behavioral disturbances. 2. Anxiety disorder, unspecified. PLAN: To continue with the treatment and also planning for discharge to return to the [facility]. LENGTH OF STAY: 2-3 days. BHARGAVI ROOT MD DR: GALLO/ana maria JOB#: [id number] / [id number]
[2019-08-18 05:49] VITALS: BP 121/65
[2019-08-18] MEDS: BRIMONIDINE 0.2% OPHTH SOLUTION 5ML BOTTLE. OU SCH ×3 (06:10→19:30)
[2019-08-18] MEDS: LEVOTHYROXINE 125 MCG TABLET PO SCH (06:10)
[2019-08-18] MEDS: LACTOBACILLUS RHAMNOSUS GG 1 CAPSULE. PO SCH ×2 (08:08→19:29)
[2019-08-18] MEDS: DONEPEZIL HCL 10 MG TABLET PO SCH (08:09)
[2019-08-18] MEDS: MULTIVITAMIN with MINERAL TABLET. PO SCH (08:09)
[2019-08-18] MEDS: SERTRALINE 50 MG TABLET. PO SCH (08:10)
[2019-08-18] MEDS: traMADol 50 MG TABLET PO SCH ×2 (08:10→19:30)
[2019-08-18] MEDS: POTASSIUM CHLORIDE 10 MEQ TABLET.ER. PO SCH (08:11)
[2019-08-18 16:00] VITALS: BP 105/66
[2019-08-18] MEDS: LATANOPROST 0.005% OPHTH SOLUTION 2.5ML BOTTLE. OU SCH (22:38)
[2019-08-19] MEDS: LEVOTHYROXINE 125 MCG TABLET PO SCH (05:58)
[2019-08-19 05:59] VITALS: BP 118/82
[2019-08-19] MEDS: BRIMONIDINE 0.2% OPHTH SOLUTION 5ML BOTTLE. OU SCH ×3 (06:14→19:26)
[2019-08-19 07:15] LABS: BASO # 0.1 x10^3/uL (0.0-0.2); BASO % 1 % (0-3); EOS # 0.1 x10^3/uL (0.0-0.7); EOS % 2 % (0-3); HEMATOCRIT 30.9 % (36.0-47.0); HEMOGLOBIN 10.1 g/dL (12.0-15.5); LYMPH # 1.3 x10^3/uL (1.0-4.8); LYMPH % 22 % (24-48); MEAN CORPUSCULAR HEMOGLOBIN 34 pg (25-35); MEAN CORPUSCULAR HGB CONC 33 g/dL (31-37); MEAN CORPUSCULAR VOLUME 104 fL (79-100); MONO # 0.8 x10^3/uL (0.0-1.1); MONO % 13 % (0-9); NEUT # 3.7 x10^3uL (1.8-7.7); NEUT % 62 % (31-73); PLATELET COUNT 280 x10^3/uL (140-400); RED BLOOD COUNT 2.98 x10^6/uL (3.50-5.40); RED CELL DISTRIBUTION WIDTH 13.8 % (11.5-14.5)
--- NOTE | 2019-08-19 07:17 | PN ---
DATE: 08/18/2019 SUBJECTIVE: The patient was seen today, met with the staff, chart reviewed. The patient completed her antibiotic course of Levaquin for the UTI. Staff reports no major problems. OBSERVATION: VITAL SIGNS: Temperature 97.2, blood pressure 121/65, pulse 106, respiration 18, O2 sat 95%. GENERAL: Slept about 7 hours last night. The patient's appetite is fair. MEDICATIONS: Reviewed. Currently on Aricept 10 mg daily, Zoloft 50 mg daily and olanzapine 2.5 mg q. 2 hours p.r.n. The patient denies of any side effects to the medications. LABORATORY DATA: The patient's lab reviewed. IMPRESSION: 1. Major neurocognitive disorder, Alzheimer's, vascular with delusions, depression and behavioral disturbances. 2. Anxiety disorder, unspecified. PLAN: To continue with the treatment, plan for discharge in the next couple of days. BHARGAVI ROOT MD DR: GALLO/ana maria JOB#: [id number] / [id number]
[2019-08-19 07:38] LABS: ALBUMIN 2.6 g/dL (3.4-5.0); ALBUMIN/GLOBULIN RATIO 0.6 (1.0-1.7); CALCIUM 8.9 mg/dL (8.5-10.1); CREATININE 0.7 mg/dL (0.6-1.0); POTASSIUM 4.2 mmol/L (3.5-5.1); TOTAL BILIRUBIN 0.3 mg/dL (0.2-1.0); TOTAL PROTEIN 6.7 g/dL (6.4-8.2)
[2019-08-19] MEDS: SERTRALINE 50 MG TABLET. PO SCH (08:00)
[2019-08-19] MEDS: LACTOBACILLUS RHAMNOSUS GG 1 CAPSULE. PO SCH ×2 (08:00→19:25)
[2019-08-19] MEDS: MULTIVITAMIN with MINERAL TABLET. PO SCH (08:00)
[2019-08-19] MEDS: POTASSIUM CHLORIDE 10 MEQ TABLET.ER. PO SCH (08:00)
[2019-08-19] MEDS: DONEPEZIL HCL 10 MG TABLET PO SCH (08:00)
[2019-08-19] MEDS: traMADol 50 MG TABLET PO SCH ×2 (08:01→19:26)
[2019-08-19 16:05] VITALS: BP 107/52
[2019-08-19] MEDS: LATANOPROST 0.005% OPHTH SOLUTION 2.5ML BOTTLE. OU SCH (19:26)
--- NOTE | 2019-08-20 05:24 | PN ---
DATE: 08/19/2019 SUBJECTIVE: The patient was seen today, met with the staff, chart reviewed. The patient continues to show mood swings, irritability, confusion, sometimes difficult to redirect. The patient needing assistance with ADLs. OBSERVATION: VITAL SIGNS: Temperature 98.4, blood pressure 118/82, pulse 106, respiration 18, O2 sat 100%. GENERAL: Slept about 6 hours last night. The patient's appetite improved. The patient's overall behavior has improved. MEDICATIONS: Currently on Aricept 10 mg daily, Zoloft 50 mg daily and olanzapine 2.5 mg q. 2 hours p.r.n. The patient denies of any side effects. Staff reports no major medical issues, no falls. LABORATORY DATA: The patient's lab reviewed. IMPRESSION: 1. Major neurocognitive disorder, Alzheimer's, vascular with delusions, depression, and behavioral disturbances. 2. Anxiety disorder, unspecified. PLAN: To continue with the treatment. The patient is waiting for placement. BHARGAVI ROOT MD DR: GALLO/ana maria JOB#: [id number] / [id number]
[2019-08-20 05:41] VITALS: BP 99/54
[2019-08-20] MEDS: BRIMONIDINE 0.2% OPHTH SOLUTION 5ML BOTTLE. OU SCH ×3 (06:20→19:44)
[2019-08-20] MEDS: LEVOTHYROXINE 125 MCG TABLET PO SCH (06:20)
[2019-08-20] MEDS: POTASSIUM CHLORIDE 10 MEQ TABLET.ER. PO SCH (08:09)
[2019-08-20] MEDS: SERTRALINE 50 MG TABLET. PO SCH (08:10)
[2019-08-20] MEDS: DONEPEZIL HCL 10 MG TABLET PO SCH (08:10)
[2019-08-20] MEDS: MULTIVITAMIN with MINERAL TABLET. PO SCH (08:10)
[2019-08-20] MEDS: LACTOBACILLUS RHAMNOSUS GG 1 CAPSULE. PO SCH (08:10)
[2019-08-20] MEDS: traMADol 50 MG TABLET PO SCH ×2 (08:11→19:44)
[2019-08-20 16:48] VITALS: BP 112/75
[2019-08-20] MEDS: LATANOPROST 0.005% OPHTH SOLUTION 2.5ML BOTTLE. OU SCH (19:44)
--- NOTE | 2019-08-21 01:20 | PN ---
DATE: 08/20/2019 SUBJECTIVE: The patient was seen today, met with the staff, chart reviewed. The patient's behavior remains the same, fluctuating symptoms, increased mood swings, irritability. Otherwise, no major problems. OBSERVATION: VITAL SIGNS: Temperature 98.6, blood pressure 99/54, respirations 20, pulse 78, O2 sat 95%. Slept about 7 hours last night. The patient's appetite improved. The patient is not presenting with any major physical problems. MEDICATIONS: The patient's current medications include Aricept 10 mg daily, Zoloft 50 mg daily and olanzapine 2.5 mg q. 2 hours p.r.n. LABORATORY DATA: The patient's lab reviewed. IMPRESSION: 1. Major neurocognitive disorder, Alzheimer's, vascular with delusions, depression and behavioral disturbances. 2. Anxiety disorder, unspecified. PLAN: To continue with the treatment. The patient was planned for discharge, awaiting for placement. BHARGAVI ROOT MD DR: GALLO/ana maria JOB#: [id number] / [id number]
[2019-08-21 04:57] VITALS: BP 108/63
[2019-08-21] MEDS: LEVOTHYROXINE 125 MCG TABLET PO SCH (05:48)
[2019-08-21] MEDS: BRIMONIDINE 0.2% OPHTH SOLUTION 5ML BOTTLE. OU SCH ×3 (05:48→19:15)
[2019-08-21] MEDS: POTASSIUM CHLORIDE 10 MEQ TABLET.ER. PO SCH (09:09)
[2019-08-21] MEDS: SERTRALINE 50 MG TABLET. PO SCH (09:09)
[2019-08-21] MEDS: MULTIVITAMIN with MINERAL TABLET. PO SCH (09:10)
[2019-08-21] MEDS: traMADol 50 MG TABLET PO SCH ×2 (09:10→19:15)
[2019-08-21] MEDS: DONEPEZIL HCL 10 MG TABLET PO SCH (09:10)
[2019-08-21] MEDS: METHYL SALICYLATE/MENTHOL TOPICAL OINTMENT 57GM TUBE. TP PRN ×2 (09:12→14:41)
[2019-08-21] MEDS: ACETAMINOPHEN 325 MG TABLET PO PRN (14:54)
[2019-08-21 15:26] VITALS: BP 125/77
[2019-08-21] MEDS: LATANOPROST 0.005% OPHTH SOLUTION 2.5ML BOTTLE. OU SCH (19:15)
[2019-08-22] MEDS: BRIMONIDINE 0.2% OPHTH SOLUTION 5ML BOTTLE. OU SCH ×3 (05:35→19:28)
[2019-08-22] MEDS: LEVOTHYROXINE 125 MCG TABLET PO SCH (05:35)
[2019-08-22] MEDS: traMADol 50 MG TABLET PO SCH ×2 (08:46→19:28)
[2019-08-22] MEDS: POTASSIUM CHLORIDE 10 MEQ TABLET.ER. PO SCH (08:46)
[2019-08-22] MEDS: DONEPEZIL HCL 10 MG TABLET PO SCH (08:47)
[2019-08-22] MEDS: MULTIVITAMIN with MINERAL TABLET. PO SCH (08:47)
[2019-08-22] MEDS: SERTRALINE 50 MG TABLET. PO SCH (08:47)
[2019-08-22] MEDS: LATANOPROST 0.005% OPHTH SOLUTION 2.5ML BOTTLE. OU SCH ×2 (14:31→19:28)
[2019-08-22] MEDS: ACETAMINOPHEN 325 MG TABLET PO PRN (14:40)
[2019-08-22] MEDS: METHYL SALICYLATE/MENTHOL TOPICAL OINTMENT 57GM TUBE. TP PRN (14:40)
--- NOTE | 2019-08-22 14:56 | PN ---
DATE: 08/22/2019 SUBJECTIVE: The patient was seen today, met with the staff, chart reviewed. The patient's behavior remains the same. The patient has not exhibited any major behavior problems. The patient continues to have some mood swings, irritability. OBSERVATION: VITAL SIGNS: Temperature 97.8, blood pressure 123/72, pulse 78, respirations 16, O2 sat 97%. Slept about 7 hours last night. The patient's appetite has improved. CURRENT MEDICATIONS: Include Aricept 10 mg daily, Zoloft 50 mg daily and olanzapine 2.5 mg q. 2 hours p.r.n. The patient is not having any side effects. LABORATORY DATA: The patient's lab reviewed. IMPRESSION: 1. Major neurocognitive disorder, Alzheimer's, vascular with delusions, depression and behavioral disturbances. 2. Anxiety disorder, unspecified. PLAN: Continue with the treatment. The patient is scheduled for discharge tomorrow to return to the place that she came from the [facility]. BHARGAVI ROOT MD DR: GALLO/ana maria JOB#: [id number] / [id number]
[2019-08-22 15:36] VITALS: BP 105/65
--- NOTE | 2019-08-22 22:15 | PDOC ---
Exam Note: Julio César Note: Please also refer to the separate dictated note~for this date of service dictated separately.~Patient seen individually. Discussed the patient with Nursing staff reviewed the chart.~Reviewed interim history and current functioning. Reviewed vital signs,~Labs/ Radiology~and current medications noted below. Continue current treatment with the changes noted in the dictated addendum note Assessment: Vital Signs/I&O: Vital Signs Date Time Temp Pulse Resp B/P (MAP) Pulse Ox O2 Delivery O2 Flow Rate FiO2 08/22/19 15:36 98.6 96 16 105/65 (78) 96 08/21/19 21:00 Room Air I & O 08/21/19 08/21/19 08/22/19 15:00 23:00 07:00 Intake Total 720 ml 240 ml Balance 720 ml 240 ml Current Medications: I have reviewed the current psychotropics carefully including drug interactions. Risk benefit ratio favors no change other than as noted in my dictated progress note. Diagnosis: Problems: (1) Medical clearance for psychiatric admission (2) Anxiety disorder (3) Dementia, vascular, with delusions (4) Dementia, vascular, with depression (5) Dementia in Alzheimer's disease with delusions (6) Dementia in Alzheimer's disease with depression (7) Impulse control disorder ТАТЬЯНА HERNANDEZ MD Aug 22, 2019 22:15
[2019-08-23] MEDS ORDERED: DONE10TA61 PO (02:15)
[2019-08-23] MEDS ORDERED: TRAM50TA PO (02:15)
[2019-08-23] MEDS ORDERED: ACET325T9 PO (02:17)
[2019-08-23] MEDS ORDERED: SERT50TA PO (02:18)
[2019-08-23] MEDS ORDERED: OLAN2.5T3 PO (02:19)
[2019-08-23] MEDS ORDERED: MULT-638 PO (02:23)
[2019-08-23] MEDS ORDERED: MAGN2400 PO (02:24)
[2019-08-23] MEDS ORDERED: MAG355OR17 PO (02:37)
[2019-08-23] MEDS ORDERED: METH113C10 TP (02:39)
--- NOTE | 2019-08-23 04:04 | PDOC ---
Exam Note: Julio César Note: Note: Dr. Hernandez was to see the patient on 08/22/[address] Cortes continued coverage on the patient for 08/22/2019 and the note written was an error and should be disregarded. Please also refer to the separate dictated note~for this date of service dictated separately.~Patient seen individually. Discussed the patient with Nursing staff reviewed the chart.~Reviewed interim history and current functioning. Reviewed vital signs,~Labs/ Radiology~and current medications noted below. Continue current treatment with the changes noted in the dictated addendum note Assessment: Vital Signs/I&O: Vital Signs Date Time Temp Pulse Resp B/P (MAP) Pulse Ox O2 Delivery O2 Flow Rate FiO2 08/22/19 20:30 Room Air 08/22/19 15:36 98.6 96 16 105/65 (78) 96 I & O 08/22/19 08/22/19 08/23/19 14:59 22:59 06:59 Intake Total 840 ml 600 ml Balance 840 ml 600 ml Current Medications: I have reviewed the current psychotropics carefully including drug interactions. Risk benefit ratio favors no change other than as noted in my dictated progress note. Diagnosis: Problems: (1) Urinary tract infection (2) Medical clearance for psychiatric admission (3) Anxiety disorder (4) Dementia, vascular, with delusions (5) Dementia, vascular, with depression (6) Dementia in Alzheimer's disease with delusions (7) Dementia in Alzheimer's disease with depression (8) Impulse control disorder ТАТЬЯНА HERNANDEZ MD Aug 23, 2019 04:04
[2019-08-23 05:58] VITALS: BP 150/67
[2019-08-23] MEDS: LEVOTHYROXINE 125 MCG TABLET PO SCH (06:00)
[2019-08-23] MEDS: BRIMONIDINE 0.2% OPHTH SOLUTION 5ML BOTTLE. OU SCH ×3 (06:00→21:33)
[2019-08-23] MEDS: MULTIVITAMIN with MINERAL TABLET. PO SCH (09:02)
[2019-08-23] MEDS: traMADol 50 MG TABLET PO SCH ×2 (09:02→20:07)
[2019-08-23] MEDS: POTASSIUM CHLORIDE 10 MEQ TABLET.ER. PO SCH (09:03)
[2019-08-23] MEDS: SERTRALINE 50 MG TABLET. PO SCH (09:03)
[2019-08-23] MEDS: DONEPEZIL HCL 10 MG TABLET PO SCH (09:03)
[2019-08-23 16:12] VITALS: BP 122/69
[2019-08-23] MEDS: LATANOPROST 0.005% OPHTH SOLUTION 2.5ML BOTTLE. OU SCH (20:07)
--- NOTE | 2019-08-23 21:42 | PDOC ---
Exam Note: Julio César Note: Please also refer to the separate dictated note~for this date of service dictated separately.~Patient seen individually. Discussed the patient with Nursing staff reviewed the chart.~Reviewed interim history and current functioning. Reviewed vital signs,~Labs/ Radiology~and current medications noted below. Continue current treatment with the changes noted in the dictated addendum note Assessment: Vital Signs/I&O: Vital Signs Date Time Temp Pulse Resp B/P (MAP) Pulse Ox O2 Delivery O2 Flow Rate FiO2 08/23/19 21:07 97 08/23/19 16:12 97.6 96 16 122/69 (86) 08/23/19 05:58 Room Air I & O 0 08/22/19 08/22/19 08/23/19 15:00 23:00 07:00 Intake Total 840 ml 600 ml Balance 840 ml 600 ml Current Medications: I have reviewed the current psychotropics carefully including drug interactions. Risk benefit ratio favors no change other than as noted in my dictated progress note. Diagnosis: Problems: (1) Anxiety disorder (2) Dementia, vascular, with delusions (3) Dementia, vascular, with depression (4) Dementia in Alzheimer's disease with delusions (5) Dementia in Alzheimer's disease with depression (6) Impulse control disorder ТАТЬЯНА HERNANDEZ MD Aug 23, 2019 21:42
[2019-08-23] MEDS: METHYL SALICYLATE/MENTHOL TOPICAL OINTMENT 57GM TUBE. TP PRN (22:07)
[2019-08-24] MEDS ORDERED: DOCU100C28 PO (02:25)
[2019-08-24] MEDS: LEVOTHYROXINE 125 MCG TABLET PO SCH (05:44)
[2019-08-24] MEDS: BRIMONIDINE 0.2% OPHTH SOLUTION 5ML BOTTLE. OU SCH (05:44)
[2019-08-24 06:23] VITALS: BP 138/67
[2019-08-24] MEDS: traMADol 50 MG TABLET PO SCH (07:59)
[2019-08-24] MEDS: DONEPEZIL HCL 10 MG TABLET PO SCH (07:59)
[2019-08-24] MEDS: MULTIVITAMIN with MINERAL TABLET. PO SCH (08:00)
[2019-08-24] MEDS: SERTRALINE 50 MG TABLET. PO SCH (08:00)
[2019-08-24] MEDS: POTASSIUM CHLORIDE 10 MEQ TABLET.ER. PO SCH (08:00)
[2019-08-24] MEDS ORDERED: DOCUSATE SODIUM 100 MG CAPSULE PO SCH (09:00)
--- NOTE | 2019-08-24 17:24 | DS ---
DATE OF DISCHARGE: 08/24/2019 DISCHARGE SUMMARY/PSYCHIATRIC PROGRESS NOTE This note covers elements not covered in my initial note and of 08/24/2019. REASON FOR ADMISSION: Please refer to the admission history for details. Briefly, the patient is an 89-year-old female, referred to us from [facility] on account of worsening confusion and she was hitting herself in the head to the point it was reddened. She was yelling out, throwing things, sundowning, agitated, having sleep disturbance, attempted to swing her head to hit it on the side bar of the commode. She was depressed, suicidal, confused, had failed outpatient psychiatric interventions resulting in this referral. Until recently, she was living out of town by herself, possibly noncompliant with her medications, and the daughter went and brought her to be in this area closer to the daughter. SIGNIFICANT FINDINGS AND CLINICAL COURSE: Following admission, the patient was seen daily individually by myself from a psychiatric standpoint, Medical followup with Dr. Ferro. The patient did have a UTI, which was treated on Levaquin and she had marked hypothyroidism with TSH in the 30s and 40s and this was corrected and reinitiated on Synthroid per Dr. Ferro, but will have to be followed closely back at the [facility]. She was quite psychotic, paranoid, agitated, confused. Adjustments were made in her psychotropic. She seemed to respond to a combination of Zoloft 50 mg a day, Aricept 10 mg a day, Zyprexa p.r.n. in addition to the above changes in her medications noted. REVIEW OF SYSTEMS: Prior to discharge on 08/24/2019, ambulation impaired, in wheelchair. No CV, , pulmonary, eye, ENT system symptoms on review. Reliability poor. MENTAL STATUS EXAM: Oriented to herself. Insight, judgment, recent and remote memory, attention, concentration, fund of knowledge poor, consistent with her diagnosis mentioned in my initial note plan. DISCHARGE DIAGNOSES: Major neurocognitive disorder; Alzheimer's, vascular with delusion, depression, behavioral disturbance; anxiety disorder, unspecified; impulse control disorder, unspecified. Hypothyroidism, status post urinary tract infection, glaucoma. Rest unchanged from admission. DISCHARGE MEDICATIONS: Please refer to the MRAD. DISCHARGE INSTRUCTIONS: Outpatient psychiatric and medical followup at the correction. Time for discharge day management greater than 30 minutes. MAN Chris HERNANDEZ MD DR: Fer JOB#: [id number] / [id number]
--- NOTE | 2019-08-24 18:26 | PN ---
DATE: 08/23/2019 PSYCHIATRIC PROGRESS NOTE This late entry 08/23/2019 covers the elements not covered in my initial note. SUBJECTIVE: I met with the patient in the evening at length individually. Discussed with nursing staff and social service staff and discharge was postponed to possibly 08/24/[address] Patel so that I could reassess the patient in the evening of 08/23/2019 prior to discharge. The patient slept 7-1/4 hours previous night. REVIEW OF SYSTEMS: Ambulation impaired, in wheelchair. No CV, , pulmonary, eye system symptoms on review. Reliability is poor. MENTAL STATUS EXAM: Oriented to herself, at times situation. Speech is coherent, rapid at times. Abstraction fair, computation impaired, language function intact, attention span short. Mood and affect remains labile. LABORATORY DATA: Reviewed. IMPRESSION: Major neurocognitive disorder, Alzheimer, vascular with delusion, depression, behavioral disturbance; anxiety disorder, unspecified; impulse control disorder, unspecified. Hypothyroidism. Rest unchanged. PLAN: Continue psychotropics from initial note, Aricept, Zoloft, along with Zyprexa p.r.n., Synthroid has been adjusted per Dr. Ferro. She has been treated for UTI on Levaquin. Rest unchanged. ТАТЬЯНА HERNANDEZ MD DR: HAIDER/ana maria JOB#: [id number] / [id number]
--- NOTE | 2019-08-24 21:29 | PDOC ---
Exam Note: Julio César Note: Please also refer to the separate dictated note~for this date of service dictated separately.~Patient seen individually. Discussed the patient with Nursing staff reviewed the chart.~Reviewed interim history and current functioning. Reviewed vital signs,~Labs/ Radiology~and current medications noted below. Continue current treatment with the changes noted in the dictated addendum note Assessment: Vital Signs/I&O: Vital Signs Date Time Temp Pulse Resp B/P (MAP) Pulse Ox O2 Delivery O2 Flow Rate FiO2 08/24/19 07:59 95 08/24/19 06:23 98.7 102 18 138/67 (90) 08/23/19 05:58 Room Air I & O 08/23/19 08/23/19 08/24/19 15:00 23:00 07:00 Intake Total 960 ml 600 ml 100 ml Balance 960 ml 600 ml 100 ml Current Medications: Meds: Current Medications Medications (Trade) Dose Ordered Sig/Camila Route PRN Reason Start Time Stop Time Status Last Admin Dose Admin Docusate Sodium (Colace) 100 mg DAILY PO 08/24/19 09:00 08/24/19 15:17 DC 08/24/19 07:59 I have reviewed the current psychotropics carefully including drug interactions. Risk benefit ratio favors no change other than as noted in my dictated progress note. Diagnosis: Problems: (1) Anxiety disorder (2) Dementia, vascular, with delusions (3) Dementia, vascular, with depression (4) Dementia in Alzheimer's disease with delusions (5) Dementia in Alzheimer's disease with depression (6) Impulse control disorder ТАТЬЯНА HERNANDEZ MD Aug 24, 2019 21:29
== END 2019-08-24 12:30 | DRG 57 ==
LOC: ER 10:59 → GEROPSY 14:37
PROVIDERS: ADMIT Psychiatry & Neurology Psychiatry; ATTEND Psychiatry & Neurology Psychiatry
DX: G30.9 Alzheimer's disease, unspecified (principal); F33.3 Major depressive disorder, recurrent, severe with psychotic symptoms; N39.0 Urinary tract infection, site not specified; F01.50 Vascular dementia, unspecified severity, without behavioral disturbance, psychotic disturbance, mood disturbance, and anxiety; F02.80 Dementia in other diseases classified elsewhere, unspecified severity, without behavioral disturbance, psychotic disturbance, mood disturbance, and anxiety; F63.9 Impulse disorder, unspecified; I10 Essential (primary) hypertension; M81.0 Age-related osteoporosis without current pathological fracture; M16.0 Bilateral primary osteoarthritis of hip; F41.1 Generalized anxiety disorder; H91.90 Unspecified hearing loss, unspecified ear; Z66 Do not resuscitate; E03.9 Hypothyroidism, unspecified; H40.9 Unspecified glaucoma; S00.93XA Contusion of unspecified part of head, initial encounter; X58.XXXA Exposure to other specified factors, initial encounter; Y93.89 Activity, other specified; Y92.89 Other specified places as the place of occurrence of the external cause; Y99.8 Other external cause status; Z79.899 Other long term (current) drug therapy
CPT/HCPCS: 36415; 70450; 71045; 72125; 72170; 80053; 80061; 81001; 82306; 83036; 83540; 83550; 83735; 84436; 84443; 84480; 85025; 86592; 87086; 87186; 90471; 90686; 93005; 97110; 97116; 97530; 99285-25